=== PATIENT | female | born 1965 ===

== ENCOUNTER 2017-02-05 10:25 | Emergency (ER) | payer OTHER ==
[2017-02-05 10:25] VITALS: BMI 29.0
[2017-02-05 10:42] VITALS: TEMP 98.1
[2017-02-05] MEDS ORDERED: TDAP Vaccine 0.5 mL Syr IM ONE (10:55)
--- NOTE | 2017-02-05 11:00 | ED PDOC ---
Arrival/HPI - General Chief Complaint: Bite Time Seen by Provider: 02/05/17 10:55 Historian: Patient - History of Present Illness Narrative History of Present Illness (Text): 02/05/17 10:50 Mirta Wilson is a 51 year old female complaining of a dog bite about an hour ago. Patient states that a small, older dog bit her while she was walking her own dog. The dog's dedicated owner operator apologized and left before the patient could ask if the dog has updated Rabies shots. Patient cleaned wound with water and soap before coming to emergency department. Patient denies any other complaint at this time. Time/Duration: 1 hour Symptom Course: Unchanged Activities at Onset: Light Modifying Factors (Text): none Context: Home Associated Symptoms (Text): 02/05/17 11:22 Dog bite on her ankle just prior to arrival. Patient needs tetanus immunization. Declines rabies immunization. Police have been called. Past Medical History - Provider Review Nursing Documentation Reviewed: Yes - Infectious Disease Hx of Infectious Diseases: None - Endocrine/Metabolic Hx Endocrine Disorders: No - Musculoskeletal/Rheumatological Hx Falls: No - Psychiatric Hx Substance Use: No - Suicidal Assessment Feels Threatened In Home Enviroment: No Family/Social History - Physician Review Nursing Documentation Reviewed: Yes Family/Social History: No Known Family HX Smoking Status: Never Smoked Hx Alcohol Use: No Hx Substance Use: No Hx Substance Use Treatment: No Allergies/Home Meds Allergies/Adverse Reactions: Allergies Cold Medications Adverse Reaction (Uncoded 02/05/17 10:43) ANAPHYLAXIS Home Medications: Home Meds Medication Instructions Recorded Confirmed No Known Home Med 02/05/17 02/05/17 Review of Systems - Physician Review All systems were reviewed & negative as marked: Yes - Review of Systems Constitutional: absent: Fevers, Night Sweats Eyes: absent: Vision Changes ENT: absent: Hearing Changes Respiratory: absent: SOB, Cough Cardiovascular: absent: Chest Pain Gastrointestinal: absent: Abdominal Pain Genitourinary Female: absent: Urine Output Changes Musculoskeletal: absent: Back Pain, Neck Pain Skin: Other (Dog bit on lower left leg) Neurological: absent: Headache, Dizziness Endocrine: absent: Diaphoresis Hemo/Lymphatic: absent: Easy Bleeding Psychiatric: absent: Depression Physical Exam Vital Signs Reviewed: Yes Vital Signs Temp Pulse Resp BP Pulse Ox 02/05/17 10:37 98.1 F 83 18 140/89 99 Temperature: Afebrile Blood Pressure: Normal Pulse: Regular Respiratory Rate: Normal Appearance: Positive for: Well-Appearing, Non-Toxic, Comfortable Pain Distress: None Mental Status: Positive for: Alert and Oriented X 3 - Systems Exam Mouth: Present: Moist Mucous Membranes Lower Extremity: No: Normal Inspection, Edema Neurological: Present: GCS=15, CN II-XII Intact, Speech Normal Skin: Present: Laceration (Scrape on left lateral malleolus ), Other ( Superficial abrasion on the left lateral malleolus) Psychiatric: Present: Alert, Oriented x 3, Normal Insight, Normal Concentration Medical Decision Making ED Course and Treatment: 02/05/17 10:50 Impression: 51 year old female complaining of laceration due to a dog bite about an hour ago. Plan: -- Boostrix Vaccine Injection -- Reassess and disposition Progress Notes: 02/05/17 11:01 Police were called for a police report. - Medication Orders Current Medication Orders: Discontinued Medications Tetanus/Reduced Diphtheria/Acell Pertussis (Boostrix Vaccine Inj) 0.5 ml IM .ONCE ONE Stop: 02/05/17 10:56 Last Admin: 02/05/17 11:05 Dose: 0.5 ML MAR Immunization Data Document 02/05/17 11:05 SE (Rec: 02/05/17 11:05 SE [id number]) Immunization Data Vaccine Lot Number [id number] Vaccine Expiration Date 01/18/19 Site Given Right Arm Route Intramuscular Immunization Units ml - Scribe Statement The provider has reviewed the documentation as recorded by the Argelia Anderson Provider Scribe Attestation: All medical record entries made by the Scribclementina were at my direction and personally dictated by me. I have reviewed the chart and agree that the record accurately reflects my personal performance of the history, physical exam, medical decision making, and the department course for this patient. I have also personally directed, reviewed, and agree with the discharge instructions and disposition. Disposition/Present on Arrival - Present on Arrival Any Indicators Present on Arrival: No History of DVT/PE: No History of Uncontrolled Diabetes: No Urinary Catheter: No History of Decub. Ulcer: No History Surgical Site Infection Following: None - Disposition Have Diagnosis and Disposition been Completed?: Yes Diagnosis: Dog bite of ankle Disposition: HOME/ ROUTINE Disposition Time: 11:24 Patient Plan: Discharge Condition: GOOD Discharge Instructions (ExitCare): Animal Bite (ED) Additional Instructions: Wound precautions given. Wound check in 2 days. Follow-up with PMD. Follow up in ER as needed.
[2017-02-05 11:40] VITALS: BP 142/82; PULSE 82; RESP 16; O2SAT 100
== END 2017-02-05 11:37 | disposition home or self-care (01) ==
LOC: ED 10:25
DX: S91.052A Open bite, left ankle, initial encounter (principal); W54.0XXA Bitten by dog, initial encounter; Y93.K1 Activity, walking an animal; Y92.89 Other specified places as the place of occurrence of the external cause; Z23 Encounter for immunization